=== PATIENT | male | born 1995 | race Hispanic/Latino ===

== ENCOUNTER 2024-06-14 06:36 | Day surgery (SDC) | payer BC ==
[2024-06-14] VITALS (12 sets, daily range): BP systolic 110–138; BP diastolic 74–82; PULSE 71–94; RESP 12–16; TEMP 97.1–98.1
[~2024-06-14] VITALS: Ht 167.6 cm; Wt 68.0 kg
[2024-06-14] MEDS: 0.9%NACL 1000ML 1,000 ML IV ONE (07:17)
[2024-06-14] MEDS ORDERED: proPOFol 10 MG/ML 20ML VIAL IV ONE ×2 (08:09→08:13)
[2024-06-14] MEDS ORDERED: ketaMINE 50MG/ML SYRINGE 50 MG/ML DISP.SYRIN ONE (08:13)
== END 2024-06-14 10:00 | disposition home or self-care (01) ==
LOC: ENDO 06:36 → DAH 06:36 → ENDO 10:00
PROVIDERS: ATTEND Internal Medicine Gastroenterology
DX: R19.4 Change in bowel habit (principal); K29.50 Unspecified chronic gastritis without bleeding; R14.0 Abdominal distension (gaseous); K62.89 Other specified diseases of anus and rectum; R12 Heartburn; Z79.899 Other long term (current) drug therapy
CPT/HCPCS: 45378; 43239; J7030 ×2; J2704 ×2; J3490; A4620; A4215 ×2; A4223; A4657 ×3; A4222; A4221; A4663; A4606